=== PATIENT | male | born 1950 | race Caucasian/White ===

== ENCOUNTER 2016-05-18 08:39 | Day surgery (SDC) | payer OTHER ==
[2016-04-25 11:09] LABS: MANUAL DIFF NEEDED? NO
[2016-04-25 11:14] LABS: BASO% 0.5 % (0.0-0.8); EOS# 0.28 X1000 (0.0-0.7); EOS% 2.6 % (0.0-10.0); HEMATOCRIT 42.2 % (42.0-52.0); HEMOGLOBIN 13.8 g/dL (14.0-18.0); IMM GRAN# 0.02 X1000 (0.0-0.04); IMM GRAN% 0.2 % (0.0-0.5); LYMPH% 11.2 % (20.5-51.1); MCH 28.8 PG (27-31); MCHC 32.7 g/dL (33-37); MCV 88.1 FL (81-99); MONO# 1.32 X1000 (0.11-0.59); MONO% 12.4 % (1.7-9.3); MPV 9.2 FL (7.4-10.4); NEUT% 73.1 % (42.2-75.2); PLT 268 X1000 (130-400); RBC 4.79 XMIL (4.7-6.1)
[2016-04-25 11:18] LABS: ALLEN TEST YES; BE 10.8 mmoll (-3.0-3.0); BLOOD TYPE ARTERIAL; DRAW SITE R RADIAL; METHB 1.7 % (0.0-1.5); O2(CT) 16.4 mL/dL (15.0-23.0); SAMPLE BLOOD; SAO2 83.6 % (95.0-100.0); THB 14.7 g/dL (11.5-17.4); pH(98.6) 7.39 (7.35-7.45)
[2016-04-25 11:28] LABS: MODALITY ROOM AIR; PCO2(98.6) 64 mmHg (35-45)
[2016-04-25 11:29] LABS: PO2(98.6) 45 mmHg (60-100)
[2016-04-25 11:36] LABS: AGAP 8; BUN 8 mg/dL (8-22); CALCIUM 9.1 mg/dL (8.8-10.2); CHLORIDE 90 mmol/L (98-107); COSMO 267; POTASSIUM 3.5 mmol/L (3.5-5.1); SODIUM 133 mmol/L (136-145); TCO2 35 mmol/L (25-35)
--- NOTE | 2016-04-25 13:47 | EKG Report ---
Test Performed on : 04/25/2016 10:27:34 AM Test Reason : PAT Blood Pressure : / mmHG Vent. Rate : 091 BPM Atrial Rate : 091 BPM P-R Int : 156 ms QRS Dur : 138 ms QT Int : 378 ms P-R-T Axes : 076 054 220 degrees QTc Int : 464 ms Normal sinus rhythm. Left bundle branch block Abnormal ECG When compared with ECG of 21-DEC-2009 17:04, T wave inversion more evident in Inferior leads T wave inversion less evident in Anterior leads ST now depressed in Inferior injury pattern suggests right ventricular involvement, recommend adding leads V3r and V4r to confirm Confirmed by Arnaldo Esquivel DO ([id number]) on 04/25/2016 6:52:10 PM
[2016-05-18] MEDS ORDERED: LEVAQUIN 500 MG/D5W 100 ML ONE (09:56)
[2016-05-18] MEDS ORDERED: LR 1,000 ML ONE (09:56)
[2016-05-18] MEDS ORDERED: XYLOCAINE 2% JELLY UROJECT ONE (12:15)
[2016-05-18] MEDS ORDERED: GENTAMICIN 80 MG/NS 50 ML ONE (12:35)
[2016-05-18] MEDS ORDERED: VERSED ONE (13:01)
[2016-05-18] MEDS ORDERED: DIPRIVAN 1% ONE (13:01)
[2016-05-18] MEDS ORDERED: KETAMINE (DOSE) ONE (13:10)
[2016-05-18] MEDS ORDERED: PERCOCET-5 ONE (13:10)
[2016-05-18] MEDS ORDERED: ROBINUL ONE (13:35)
[2016-05-18 13:41] VITALS: BP 123/84
--- NOTE | 2016-05-18 15:41 | OPERATIVE NOTE ---
PROCEDURE DATE: 05/18/2016 PREOPERATIVE DIAGNOSES: 1. Nodular prostate. 2. Elevated prostate-specific antigen. 3. Positive PCA3. 4. Benign prostatic hypertrophy with bladder outlet obstruction and urinary retention. POSTOPERATIVE DIAGNOSES: 1. Nodular prostate. 2. Elevated prostate-specific antigen. 3. Positive PCA3. 4. Benign prostatic hypertrophy with bladder outlet obstruction and urinary retention. PROCEDURE: 1. Cystoscopy. 2. Transrectal ultrasound of the prostate and transrectal needle biopsy of the prostate under ultrasonic guidance and digital guidance. SURGEON: Nazario Donis MD DESCRIPTION OF PROCEDURE: The patient had good bowel prep with enemas. He was given preoperative antibiotics such as Levaquin and gentamicin. The risks and benefits were explained to the patient and the family. He was taken to the operating room and was heavily sedated. Because of his upper respiratory tract infection and compromised pulmonary function, he was given only MAC. I put lidocaine jelly into the urethra and the bladder for topical anesthesia. The flexible cystoscope was introduced into the urethra and slowly advanced to the bladder. The bladder was 1+ trabeculated. Ureteral orifices looked normal. There was bilobar hypertrophy of the prostate with a occlusion of the prostatic urethra and the bladder neck. The prostatic urethra measured about 4.5 cm in length. There was some evidence of chronic inflammation and intraprostatic calculi. The cystoscope was withdrawn and we put in a Parker catheter connected to a bedside bag. Transrectal ultrasound of the prostate and biopsy. The biplane transrectal probe was introduced into the rectum and the prostate was scanned. The architecture of the prostate was well maintained. There were numerous intraprostatic calculi, more so on the right lobe. The prostate was moderately enlarged with a volume of 56 cc. The right lobe had more calcification than the left as well as the hypoechoic areas. Thereafter, with the biopsy was done. We took several biopsies. We took about 3 biopsies from the base, 2 biopsies from the mid zone , and 2 biopsies from the apex and in a likewise fashion, we did from the left lobe as well. In addition, we took 2 biopsies from the right nodules. There were no complication. The sampling was satisfactory. The patient tolerated the procedure well and returned to the recovery room in stable condition. [facility]
== END 2016-05-18 13:45 | disposition home or self-care (01) ==
LOC: OPS 08:39
PROVIDERS: ATTEND Specialist
DX: N40.1 Benign prostatic hyperplasia with lower urinary tract symptoms (principal); R97.20 Elevated prostate specific antigen [PSA]; N13.8 Other obstructive and reflux uropathy; R33.8 Other retention of urine; J44.9 Chronic obstructive pulmonary disease, unspecified; Z99.81 Dependence on supplemental oxygen; Z87.891 Personal history of nicotine dependence
CPT/HCPCS: 76942; 80048; 82805; 85025; 88305; 93005; 93010; J1580; J2250; J7120

== ENCOUNTER 2019-01-20 05:10 | Day surgery (SDC) ==
--- NOTE | 2019-01-14 10:11 | EKG Report ---
Test Performed on : 01/14/2019 10:07:59 AM Test Reason : PAT Blood Pressure : / mmHG Vent. Rate : 103 BPM Atrial Rate : 103 BPM P-R Int : 156 ms QRS Dur : 124 ms QT Int : 362 ms P-R-T Axes : 084 078 228 degrees QTc Int : 474 ms Sinus tachycardia. Septal infarct , age undetermined Left bundle branch block ST & T wave abnormality, consider inferolateral ischemia Abnormal ECG When compared with ECG of 25-APR-2016 18:58, Septal infarct is now present Confirmed by Florencia WORLEY, Junaid Ha ([id number]) on 01/14/2019 1:27:16 PM
[2019-01-14 10:26] LABS: HEMATOCRIT 44.7 % (42.0-52.0); HEMOGLOBIN 14.3 g/dL (14.0-18.0); MCH 28.1 PG (27-31); MCV 87.8 FL (81-99); MPV 8.8 FL (7.4-10.4); RBC 5.09 XMIL (4.7-6.1); RDW 13.5 % (11.5-14.5); WBC 9.82 X1000 (4.8-10.8)
[2019-01-14 11:11] LABS: AGAP 12; BUN 6 mg/dL (8-22); CALCIUM 9.8 mg/dL (8.8-10.2); CHLORIDE 96 mmol/L (98-107); COSMO 279; CREATININE 0.7 mg/dL (0.7-1.2); ESTIMATED GFR > 60; GLUCOSE 140 mg/dL (70-104); POTASSIUM 4.3 mmol/L (3.5-5.1); SODIUM 140 mmol/L (136-145); TCO2 32 mmol/L (25-35)
[2019-01-20] MEDS ORDERED: KEFZOL 1 GM/D5W 2 GM/100 ML IVPB ONE (05:47)
[2019-01-20] MEDS ORDERED: LR 1,000 ML ONE ×2 (05:47→06:35)
[2019-01-20] MEDS ORDERED: DIPRIVAN 1% ONE (06:03)
[2019-01-20] MEDS ORDERED: VERSED ONE (06:03)
[2019-01-20] MEDS ORDERED: FENTANYL ONE (06:03)
[2019-01-20] MEDS ORDERED: XYLOCAINE-MPF 2% ONE (06:03)
[2019-01-20] MEDS ORDERED: NORCURON ONE (06:04)
[2019-01-20] MEDS ORDERED: OFIRMEV 1000 MG/ISOTONIC SOLN 1,000 MG/100 ML BOTTLE ONE (06:04)
[2019-01-20] MEDS ORDERED: QUELICIN (DOSE) ONE (06:04)
[2019-01-20] MEDS ORDERED: SODIUM CHLORIDE 0.9% 10 ML ONE (06:04)
[2019-01-20] MEDS ORDERED: B & O 16A SUPP ONE (06:35)
[2019-01-20] MEDS ORDERED: MARCAINE 0.25% PF/EPI 1:200,000 ONE (06:35)
[2019-01-20] MEDS ORDERED: ZOFRAN ONE (07:20)
[2019-01-20] MEDS ORDERED: DECADRON ONE (07:20)
[2019-01-20 07:40] LABS: URINE SOURCE CATH
[2019-01-20 07:44] LABS: BILIRUBIN URINE NEGATIVE (NEGATIVE); BLOOD URINE NEGATIVE (NEGATIVE); COLOR YELLOW; GLUCOSE URINE NEGATIVE (NEGATIVE); KETONE URINE TRACE mg/dL (NEGATIVE); LEUKOCYTES URINE NEGATIVE (NEGATIVE); NITRITE URINE NEGATIVE (NEGATIVE); PH URINE 8.5; PROTEIN URINE TRACE mg/dL (NEGATIVE); SP GRAVITY URINE 1.015; TURBIDITY URINE CLEAR (CLEAR); UROBILINOGEN URINE NORMAL (NORMAL)
[2019-01-20 07:45] LABS: UR EPITHELIAL CELLS <10 /HPF (<10); URINE BACTERIA NEGATIVE /HPF; URINE RBC <10 /HPF (<10); URINE WBC <10 /HPF (<10)
[2019-01-20] MEDS ORDERED: NEOSTIGMINE ONE (07:53)
[2019-01-20] MEDS ORDERED: ROBINUL ONE (07:53)
[2019-01-20] MEDS ORDERED: NS 1,000 ML ONE (11:46)
[2019-01-20] MEDS ORDERED: BENADRYL PO PRN (13:00)
[2019-01-20] MEDS ORDERED: MORPHINE IV PRN (13:06)
[2019-01-20] MEDS ORDERED: PHENERGAN IV PRN (13:15)
[2019-01-20] MEDS ORDERED: OFIRMEV 1000 MG/ISOTONIC SOLN 1,000 MG/100 ML BOTTLE IV PRN (13:15)
[2019-01-20] MEDS ORDERED: DITROPAN PO PRN (13:15)
[2019-01-20] MEDS ORDERED: BENADRYL LIQUID PO PRN (13:15)
[2019-01-20] MEDS ORDERED: LABETALOL IV PRN (13:15)
[2019-01-20] MEDS ORDERED: OXY IR PO PRN (13:15)
[2019-01-20] MEDS: KEFZOL 2 GM/D5W 2 GM/50 ML IVPB IV SCH ×2 (13:40→22:20)
[2019-01-20] MEDS: OXY IR PO PRN ×3 (13:40→22:53)
[2019-01-20] MEDS ORDERED: NS 1,000 ML IV SCH (14:00)
[2019-01-20] MEDS: DUONEB (A & A) INH SCH ×2 (15:20→22:56)
--- NOTE | 2019-01-20 15:43 | OPERATIVE NOTE ---
PROCEDURE DATE: 01/20/2019 SURGEON: Ned Osorio MD. PREOPERATIVE DIAGNOSIS: Adenocarcinoma of the prostate, [place] Alberto grade 3+4 and 4+4 and several cores. POSTOPERATIVE DIAGNOSIS: Adenocarcinoma of the prostate, [place] Alberto grade 3+4 and 4+4 and several cores. PROCEDURE PERFORMED: 1. Laparoscopic robot-assisted radical retropubic prostatectomy (nerve sparing). 2. Modified bilateral pelvic lymph node dissection. 3. Urethral suspension. ANESTHESIA: General endotracheal. FINDINGS: Status post TURP with a wide open bladder neck. Otherwise, the prostate appeared normal with normal attached seminal vesicles and ampulla of the vas deferens. INDICATION FOR PROCEDURE: This 68-year-old male was noted to have an elevated PSA. Transurethral prostate ultrasound and biopsies revealed adenocarcinoma, [place] grade 3+4 and 4+4 and several cores, mainly on the right side of the prostate. DESCRIPTION OF PROCEDURE: After informed consent was obtained from the patient and him receiving IV antibiotics, he was taken to the main OR, placed in the supine position. General endotracheal anesthesia was achieved. He was then placed in a low lithotomy position and prepped and draped in the usual sterile fashion for abdominal, penile, and perineal surgery. An 18- [place] Parker catheter was passed through the patient's urethra, prostate, and into the bladder. Ten milliliters of sterile water were placed in the Parker's balloon. The Parker was placed to gravity drain. A small incision, approximately 2 cm in length was made just above the umbilicus in the midline. The Veress needle was then passed into the abdominal cavity, position verified by the water drop test and aspiration. Pneumoperitoneum was achieved with CO2 to a pressure of 15 cm of water. The robot trocars were placed in their standard position with the #1 arm 1 handbreadth to the right of midline just below the umbilicus, the #4 arm just above the right anterior- superior iliac spine, the #2 arm was placed a handbreadth and half to the left of the umbilicus. The congressional assistant port was placed in the left epigastric area about 1 handbreadth lateral to the umbilicus. After the trocars were placed, the patient was placed in steep Trendelenburg and the table lowered all the way. The robot was docked. The procedure was started by taking down a small physiologic adhesions. The 4th arm was used to retract the rectum cephalad. An incision was made in the peritoneum as it reflected off the rectum, about 2 cm above this reflection. This was taken back to the seminal vesicles and ampulla of the vas deferens. These were bluntly and sharply dissected free. The vas deferens was incised using the electrocautery. The artery to the vas deferens was also cauterized. The seminal vesicle was then bluntly and sharply dissected free. The pedicle was taken down with a clip and the seminal vesicle dissected back to the base of the prostate, both laterally and dorsally. Both sides were accomplished similarly. Attention was then turned to the anterior abdominal wall where the peritoneum was incised medial to the internal inguinal ring. This incision was taken down to the vas deferens and up onto the anterior abdominal wall, following the medial umbilical ligament. Both sides were accomplished similarly. The medial umbilical ligaments were taken down sharply with the electrocautery as well as the median umbilical ligament. The bladder was then bluntly and sharply dissected off the anterior abdominal wall. This was taken down to the endopelvic fascia. The fibrofatty tissue off the anterior and lateral sides of the prostate was removed sharply. The endopelvic fascia was entered lateral to the prostate. It was very attached. The levator ani muscles were pushed and incised off the lateral sides of the prostate. The puboprostatic ligaments were taken down sharply. The dorsal vein complex was secured using a 2-0 V-Loc suture. It was passed under the dorsal vein complex but anterior to the urethra, then back under the dorsal vein complex and anterior to the urethra. The end of the suture was passed through the tail and this was pulled tight. The suture was then passed through the periosteum of the pubis, back under the dorsal vein complex, and then back through the periosteum of the pubis. Attention was then turned to the prostatovesical junction, where the electrocautery was used to incise the bladder and this was sharply dissected off the base of the prostate. The bladder was entered and it was noted he had a very large bladder neck, this being due to his previous 2 transurethral resection of the prostate. The posterior bladder neck was incised below the ureteral orifices but above the TURP defect. The bladder was sharply dissected off the base of the prostate. This left a very large bladder neck. After the bladder was completely freed from the prostate, the previously dissected space at the seminal vesicles and ampulla of the vas deferens was entered. The bladder neck was closed at this time using a running suture of 2-0 Vicryl first at the 9 o'clock position and then at the 3 o'clock position. This closed the bladder neck down to a reasonable size. The prostate pedicles were taken down with clips and the prostate was sharply dissected off of the rectum and neurovascular bundle down to the apex of the prostate. Both sides were accomplished similarly. The dorsal vein complex as it spread out over the apex of the prostate was cauterized and incised. The urethra was visualized and it was incised about 2 to 3 mm distal to the apex of the prostate. The patient had several cores at the apex positive for [place] 3+4 and 4+4 cancer. The posterior urethra was then incised and the remaining fibers of the rectal urethralis muscles were taken down sharply. The prostate was completely freed and moved to the side. The modified pelvic lymph node dissection was performed by exposing the medial side of the external iliac vein. The distal margin of resection was the node of [place]. This was taken down on the inside of the pubic bone to the obturator nerve. The tha tissue above the obturator nerve was dissected up to the bifurcation of the external and internal iliac veins. Lymphostasis and hemostasis was achieved with clips and cautery. The node tissue was passed out of the body and sent to Pathology in its own container. The right side was accomplished similarly. The dissected areas were packed with Surgicel Snow. The bladder was anastomosed to the urethra by first placing the vesicovisceral fascia to the posterior rhabdosphincter with a running suture of double arm 3-0 V-Loc suture. The urethra was anastomosed to the bladder using a double-armed 3-0 V-Loc suture. At completion, the Parker catheter passed into the bladder without difficulty. The bladder was distended to 60 mL. No leakage leaking was seen. The Parker was then placed to gravity drain. The pneumoperitoneum was dropped to 3 cm of water. No bleeding was visualized. The EndoCatch retrieval bag string was then brought through the camera port. Pneumoperitoneum was resolved and the robot was undocked. The patient was then returned to the supine position. The camera port incision was extended for about 1 more centimeter and the prostate was removed. The abdominal rectus fascia was reapproximated with interrupted sutures of #1 [place], a total of 4 sutures were placed. The external oblique fascia was reapproximated at the 12 mm port that was used for the congressional assistant port. A [id number] suture of 2-0 Vicryl was placed. The skin was reapproximated with clips. Island dressings were placed. He tolerated the procedure well. ESTIMATED BLOOD LOSS: 50 mL. DISPOSITION: He was extubated and taken to the recovery room in good condition. cc: Ned Osorio MD MTDD
[2019-01-20] MEDS: PERIDEX MT SCH (20:18)
[2019-01-20] MEDS: COLACE PO SCH (20:18)
[2019-01-20] MEDS: PEPCID PO SCH (20:18)
[2019-01-20] MEDS ORDERED: ZOCOR PO SCH (21:00)
[2019-01-21] MEDS: LOPRESSOR PO SCH ×2 (01:20→08:09)
[2019-01-21] MEDS: DUONEB (A & A) INH SCH ×2 (03:30→07:37)
[2019-01-21] MEDS: OXY IR PO PRN ×2 (04:10→08:09)
[2019-01-21 06:02] LABS: HEMATOCRIT 35.8 % (42.0-52.0); HEMOGLOBIN 11.5 g/dL (14.0-18.0); MCH 28.5 PG (27-31); MCHC 32.1 g/dL (33-37); MCV 88.6 FL (81-99); MPV 8.9 FL (7.4-10.4); RBC 4.04 XMIL (4.7-6.1); RDW 13.3 % (11.5-14.5); WBC 13.52 X1000 (4.8-10.8)
[2019-01-21 06:29] LABS: AGAP 14; BUN 6 mg/dL (8-22); CALCIUM 7.8 mg/dL (8.8-10.2); CHLORIDE 94 mmol/L (98-107); COSMO 271; CREATININE 0.7 mg/dL (0.7-1.2); ESTIMATED GFR > 60; GLUCOSE 187 mg/dL (70-104); POTASSIUM 4.5 mmol/L (3.5-5.1); SODIUM 134 mmol/L (136-145); TCO2 26 mmol/L (25-35)
[2019-01-21 07:48] VITALS: BP 119/67
[2019-01-21] MEDS: COLACE PO SCH (08:08)
[2019-01-21] MEDS: PEPCID PO SCH (08:09)
[2019-01-21] MEDS: PERIDEX MT SCH (08:10)
[2019-01-21] MEDS ORDERED: PRINIVIL PO SCH (09:00)
[2019-01-21] MEDS ORDERED: AMARYL PO SCH (09:00)
[2019-01-21] MEDS ORDERED: CENTRUM SILVER PO SCH (09:00)
== END 2019-01-21 09:51 | disposition home or self-care (01) ==
LOC: 4N 05:10 → OR 05:10
PROVIDERS: ATTEND Urology